=== PATIENT | female | born 1990 ===

== ENCOUNTER 2017-03-12 17:01 | Observation (INO) | payer SELFPAY ==
--- NOTE | 2017-03-12 17:53 | OBPROG ---
OBG Progress Note Assessment/Plan: Assessment: at 33w3d, PNC in [place] contractions (not picked up on toco) Cervix long/closed status reassuring Plan: await fFN results. If neg will discharge home with precautions If fFN positive will plan to repeat SVE 2 hours from prior to ensure stability Trial nifedipine 20 mg x 1 now for symptomatic relief 03/12/17 17:54 Subjective: Healthy 26 yo at 33w3d by stated dates here for contractions. Pt has had care starting since 12 weeks [place]. Endorses low risk without complications, apart from some vision changes in left eye that also occurred in her prior pregnancies and then resolved . Prior at term x 2 without complication. Is in town for her sister's graduation from . Starting today noticing some recurrent pelvic pressure and lower back discomfort, feels like what she has felt in early labor in past. No LOF or VB, but possible loss of mucous plug yesterday. Didn't drink as much fluids as normal today. Baby is active. Wants to know if there is any medication she can take to stop the contractions before she can get home tomorrow. Denies significant PMH/PSH/FH/SH. Here with her mother and her grandmother Objective: VS: WNL Gen: NAD Resp: unlabored CV: RRR Abd: gravid, soft, nontender, c/w dates Ext: no edema SSE: Physiologic discharge. Cervix long/closed. fFN collected SVE: long/closed/firm Bedside US: Vertex fetus Ant placenta Normal fluid - SVE Dilation (cm): 0 Effacement (%): 0 Station: -3 FHR (bpm): 145 FHR Pattern Variability: Moderate FHR Category: 1 Membranes: Intact ICD10 Worksheet Patient Problems: Problems Problem Status Onset contractions Acute - ICD10 Problem Qualifiers (1) contractions
[2017-03-12] MEDS ORDERED: NIFEdipine 10 MG CAP PO ONE (17:57)
== END 2017-03-12 19:07 | disposition home or self-care (01) ==
LOC: FLD 17:01
PROVIDERS: ADMIT Obstetrics & Gynecology; ATTEND Obstetrics & Gynecology
DX: O47.03 False labor before 37 completed weeks of gestation, third trimester (principal); Z3A.33 33 weeks gestation of pregnancy
CPT/HCPCS: G0378